=== PATIENT | male | born 1985 | race Caucasian/White ===

== ENCOUNTER 2016-07-30 08:13 | Emergency (ER) | payer OTHER ==
[~2016-07-30] VITALS: Ht 182.9 cm; Wt 98.0 kg
[2016-07-30 08:23] VITALS: TEMP 36.8; Ht 182.9 cm; Wt 98.0 kg
--- NOTE | 2016-07-30 09:02 | DIAGNOSTIC IMAGING REPORT ---
LEFT ANKLE MIN 3 VIEWS ROUTINE CLINICAL HISTORY: Left ankle pain status post trauma COMPARISON: None. DISCUSSION: No fractures or dislocations are visualized. The ankle mortise appears intact. There is minor lateral soft tissue swelling. IMPRESSION: No fractures or dislocations identified. Electronically signed by: Palomo Schmidt M.D. 07/30/2016 9:01 AM Dictated Date/Time: 07/30/2016 8:59 AM
--- NOTE | 2016-07-30 09:22 | EMERGENCY ROOM VISIT NOTE ---
ED Visit Note First contact with patient: 08:34 Chief Complaint: LEFT Ankle Injury History of Present Illness: This patient is a 30-year-old male who presents to the Emergency Department this morning for evaluation of their LEFT Ankle Injury. Patient states that they injured the ankle while twisting the ankle while slipping on the ice at work. They report moderate pain over the lateral aspect of the ankle after twisting the ankle. Pain is worse with ambulation. They deny any numbness or tingling into the distal extremity including the toes. They deny any pain extending into the affected foot or leg. Patient reports no previous fractures of the affected ankle. Patient rates his current discomfort as a 10/10. Patient has tried nothing for their pain. Medications: No current medications. Allergies: No known allergies. PMH: No pertinent past medical history. SHx: Patient is a 30-year-old male who lives locally. ROS: All pertinent positive and negative review of systems are appropriately documented in the History of Present Illness. Physical Exam: VITAL SIGNS - Vital signs and nursing notes were reviewed. GENERAL - 30-year-old male appearing his stated age and in noticeable discomfort throughout the exam. MUSCULOSKELETAL - LEFT ankle without erythema, edema, and ecchymosis. Moderate tenderness to palpation appreciated over the lateral malleolus. No tenderness extending into the foot or up the leg. +4/5 strength appreciated LEFT versus right secondary to patient discomfort. Pt with decreased AROM at affected joint secondary to patient discomfort. ANTERIOR DRAWER TEST: Positive reproduction of pain. EVERSION TEST: Unremarkable. INVERSION TEST: Positive reproduction of pain. SQUEEZE TEST: Unremarkable. NEUROLOGIC/VASCULAR - Neurovascularly intact distally with +3/5 dorsalis pedis pulses palpated bilaterally. Normal sensation to light and sharp touch appreciated distally. IMAGING: LEFT ANKLE MIN 3 VIEWS ROUTINE CLINICAL HISTORY: Left ankle pain status post trauma COMPARISON: None. DISCUSSION: No fractures or dislocations are visualized. The ankle mortise appears intact. There is minor lateral soft tissue swelling. IMPRESSION: No fractures or dislocations identified. ED Course: Patient was seen and evaluated by myself. Patient was provided an ice pack for comfort. Patient declines for their complaint of pain. X-rays were obtained of the affected ankle. Imaging results as above. Images were discussed and reviewed with the patient who acknowledges understanding. Patient was provided a Gel Ankle Splint for their comfort. He declines the use of crutches. The patient was initially encouraged to follow-up with Workmen's Compensation for clearance for return to full duty. 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 He reports that he will use the splint and return at light duty. The patient was encouraged to follow-up with Workmen's Compensation approved orthopedic provider for continued clearance. He was educated on worrisome symptoms for return visit to the emergency department. Patient discharged home in good condition. Impression: LEFT Ankle Sprain Discharge Instructions: You have been treated in the Emergency Department for your LEFT Ankle Sprain. For pain control, you can use the following [id number] medicines (if >12 yo): - Regular strength (325mg/tab) Tylenol (acetaminophen) 2 tabs every 4-6 hours as needed. Do not exceed 12 tablets in a 24 hour period. Avoid taking more than 4 grams (4000 mg) of Tylenol per day. This includes any other sources of acetaminophen you may take on a regular basis. - Regular strength (200 mg/tab) Advil (ibuprofen) 1-2 tabs every 4-6 hours as needed. Do not exceed a dose of 3200 mg per day. If this is a recent injury (<24 hrs), ice can be applied to the area of pain for the first 3 days to help decrease pain and inflammation. Please use the crutches and ankle splint until you are able to ambulate without discomfort. You can continue to use the ankle splint for the next 1-2 weeks to help with ankle stability. Follow-up with your primary care provider or Orthopedic Surgeon in 4-5 days if your symptoms are not improving despite the treatment plan outlined above. Return to the Emergency Department if your current symptoms worsen despite treatment course outlined above, or if you develop any of the following symptoms : intractable pain despite aforementioned treatment course or new onset of numbness or tingling of the foot. Current/Historical Medications No Active Prescriptions or Reported Meds Allergies Coded Allergies: No Known Allergies (Unverified , 07/30/16) Vital Signs Date Time Temp Pulse Resp B/P Pulse Ox O2 Delivery O2 Flow Rate FiO2 07/30/16 09:28 77 20 146/81 98 07/30/16 08:23 36.8 75 20 166/103 100 Room Air Departure Information Impression Primary Impression: Left ankle sprain Dispostion Home / Self-Care Condition GOOD Prescriptions No Active Prescriptions or Reported Meds Referrals No Doctor, Assigned (PCP) Patient Instructions Ankle Sprain, My Ovi Bennett [facility] Additional Instructions You have been treated in the Emergency Department for your LEFT Ankle Sprain. For pain control, you can use the following [id number]-[id number] medicines (if >12 yo): - Regular strength (325mg/tab) Tylenol (acetaminophen) 2 tabs every 4-6 hours as needed. Do not exceed 12 tablets in a 24 hour period. Avoid taking more than 4 grams (4000 mg) of Tylenol per day. This includes any other sources of acetaminophen you may take on a regular basis. - Regular strength (200 mg/tab) Advil (ibuprofen) 1-2 tabs every 4-6 hours as needed. Do not exceed a dose of 3200 mg per day. If this is a recent injury (<24 hrs), ice can be applied to the area of pain for the first 3 days to help decrease pain and inflammation. Please use the crutches and ankle splint until you are able to ambulate without discomfort. You can continue to use the ankle splint for the next 1-2 weeks to help with ankle stability. Follow-up with your primary care provider or Orthopedic Surgeon in 4-5 days if your symptoms are not improving despite the treatment plan outlined above. Return to the Emergency Department if your current symptoms worsen despite treatment course outlined above, or if you develop any of the following symptoms : intractable pain despite aforementioned treatment course or new onset of numbness or tingling of the foot. Problem Qualifiers Primary Impression: Left ankle sprain Encounter type: initial encounter Involved ligament of ankle: unspecified ligament Qualified Codes: S93.402A - Sprain of unspecified ligament of left ankle, initial encounter
[2016-07-30 09:28] VITALS: BP 146/81; PULSE 77; O2SAT 98
== END 2016-07-30 09:28 | disposition home or self-care (01) ==
LOC: C.EDB 08:15
DX: S93.402A Sprain of unspecified ligament of left ankle, initial encounter (principal); W00.0XXA Fall on same level due to ice and snow, initial encounter